=== PATIENT | male | born 1970 | race Caucasian/White ===

== ENCOUNTER 2021-09-21 19:36 | Outpatient (REF) | payer OTHER, SELFPAY ==
[2021-09-21 20:26] LABS: Anion Gap 11.7 mmol/L (3-11); BUN 25 mg/dL (7-18); CO2 24.3 mmol/L (21.0-32.0); Calculated LDL 101 mg/dL (<100); Chloride 106 mmol/L (98-107); Cholesterol 177 mg/dL (<200); Glucose 89 mg/dL (74-106); HDL Cholesterol 54 mg/dL (40-60); Potassium 4.2 mmol/L (3.5-5.1); Sodium 142 mmol/L (136-145); TSH 1.72 uIU/mL (0.36-3.74); Triglyceride 112 mg/dL (<150)
[2021-09-22 17:31] LABS: PSA, Screening 0.8 ng/mL (0.0-3.5)
== END 2021-09-21 19:37 | disposition home or self-care (01) ==
LOC: NCHCN 19:36
PROVIDERS: PCP Physician Assistant; Visit Provider Internal Medicine
DX: N40.0 Benign prostatic hyperplasia without lower urinary tract symptoms (principal); Z12.5 Encounter for screening for malignant neoplasm of prostate; Z00.00 Encounter for general adult medical examination without abnormal findings; Z13.29 Encounter for screening for other suspected endocrine disorder; Z13.220 Encounter for screening for lipoid disorders; Z13.228 Encounter for screening for other metabolic disorders
CPT/HCPCS: 80048; 80061; 84153; 84443

== ENCOUNTER 2023-03-23 14:16 | Outpatient (REF) | payer OTHER, SELFPAY ==
[2023-03-23 21:49] LABS: Abs Immature Grans 0.01 10^3/uL (0.0-0.06); Absolute Basophil Count 0.05 10^3/uL (0.0-0.2); Absolute Eosinophil Count 0.23 10^3/uL (0.0-0.7); Absolute Lymphocyte Count 1.16 10^3/uL (1.2-3.4); Absolute Monocyte Count 0.46 10^3/uL (0.1-0.8); Eosinophils % 4.6; HCT 43.8 % (40.0-50.0); HGB 14.5 g/dL (13.5-17.5); Immature Grans % 0.2; Lymphocytes % 23.2; MCH 30.8 pg (27.0-33.0); MCHC 33.1 % (32.0-36.0); MCV 93 fL (80-95); MPV 10.6 fL (8.0-11.0); Monocytes % 9.2; Neutrophils % 61.8; Platelet Count 130 10^3/uL (130-400); RBC 4.71 10^6/uL (4.36-5.78); RDW 12.3 % (11.8-14.1); RDW-SD 42.5 fL; WBC 5.01 10^3/uL (4.4-10.8)
[2023-03-23 21:59] LABS: ESR 3 mm/hr (0-20)
[2023-03-23 22:09] LABS: ALT 31 U/L (16-63); AST 25 U/L (15-37); Albumin 3.9 g/dL (3.4-5.0); Alkaline Phosphatase 54 U/L (46-116); Anion Gap 7.5 mmol/L (3-11); BUN 19 mg/dL (7-18); Bilirubin, Total 0.6 mg/dL (0.2-1.0); CO2 27.5 mmol/L (21.0-32.0); CREATININE 0.9 mg/dL (0.70-1.30); Chloride 108 mmol/L (98-107); Creatine Kinase 180 U/L (39-308); Estimated GFR 102.12 (mL/min/1.73m2); Glucose 126 mg/dL (74-106); Potassium 4.4 mmol/L (3.5-5.1); Sodium 143 mmol/L (136-145); TSH 1.21 uIU/mL (0.36-3.74); Total Protein 6.5 g/dL (6.4-8.2)
[2023-03-24 18:27] LABS: Rheumatoid Factor <8.6 IU/mL (<12.0)
[2023-03-28 16:03] LABS: ANA Interpretation Negative (Negative)
[2023-03-29 10:15] LABS: Lyme Ab w Rflx to Lyme Confirm Negative (Negative)
== END 2023-03-23 14:17 | disposition home or self-care (01) ==
LOC: NCHCN 14:16
PROVIDERS: PCP Physician Assistant; Visit Provider Internal Medicine
DX: R53.83 Other fatigue (principal)
CPT/HCPCS: 80053; 82550; 85652; 84443; 85025; 86038; 86431; 86618

== ENCOUNTER 2024-06-04 08:10 | Day surgery (SDC) | payer OTHER, SELFPAY ==
--- NOTE | 2024-06-03 15:50 | W.PM.DSUDISC ---
Date of service: 06/04/24 Time of Service: 09:23 Discharge Plan Disposition Patient Disposition: Home Condition: Good Discharge Details Reason For Visit: screening colonoscopy Attending Provider: Valdez Stroud Primary Care Provider: Caleb Cerna Home Meds and New Rx's Prescriptions: Continued tamsulosin 0.4 mg capsule 0.4 mg PO QHS albuterol sulfate 90 mcg/actuation HFA aerosol inhaler 2 puff inhalation Q6H PRN Discontinued polyethylene glycol 3350 17 gram/dose powder 238 g PO ONCE Qty: 238 0RF Rx Instructions: take per colonoscopy instructions bisacodyl [Dulcolax (bisacodyl)] 5 mg tablet,delayed release (DR/EC) 5 mg PO ONCE Qty: 4 0RF Rx Instructions: take per colonoscopy instructions No Action epinephrine 0.3 mg/0.3 mL auto-injector Discharge Instructions Instructions: Diverticulosis Additional Instructions: Jalen, it was great seeing you today, and I hope you are comfortable during the procedure. Everything went very smoothly. Your prep was great and I could see everything fine. There are no tumors or polpys. Incidentally, you do have a bit of diverticulosis. Diverticula are little weak spots in the muscular part of the colon wall. This causes the inside lining to push outward a bit. He is can get irritated during episodes that we refer to his diverticulitis. Hopefully, years never bother you. Have attached a little bit of information here about management of diverticular disease. Generally, I recommend the patient stay well-hydrated, incorporate lots of fiber into their diet, and avoid symptoms of constipation. Based on your family history, I do recommend another colonoscopy in 5 years. If you need anything, or have any questions in the meantime, please do not hesitate to ask 1. If tolerated, consume a soft, low fiber diet for 1-2 days. 2. Do not drive, drink alcohol, operate machinery, make critical decisions, or do activities that require coordination or balance for 24 hours. 3. Because air was put into your colon during the procedure, expelling air from your rectum (passing gas or farting) is normal. 4. You may not have a bowel movement for 1-3 days because of the colonoscopy prep. This is normal. 5. Go directly to the emergency room if you notice any of the following: Develop chills (warm to touch), or if you have a thermometer and your temperature is above 101 Difficulty breathing or difficultly swallowing Persistent vomiting Severe abdominal pain, other than gas cramps Severe chest pain Black, tarry stools Any bleeding ? exceeding one tablespoon 6. Call your physician if the site where your intravenous was started becomes red, swollen, painful, and warm to touch. 7. Your physician has reviewed your pre-procedure medications. Please continue to take those medications as previously ordered. You will be given specific information/education regarding any changes to your medications before leaving. Activity:: Activity as Tolerated Diet:: As Tolerated Discharge Orders Discharge Orders: Discharge Order (Routine); Ordered 06/03/24 Ordered By: Sidney Roland DS: Diagnosis Discharge Diagnosis (1) Encounter for screening colonoscopy: Status: Acute Asessment and Plan: Diverticulosis; otherwise negative screening colonoscopy. Based on family history, 5-year interval for the next colonoscopy
--- NOTE | 2024-06-03 15:53 | W.COLOREPORT ---
Date of service: 06/04/24 Time of Service: : Colonoscopy Report Date of procedure: 06/04/24 Pre-op diagnosis general: screening colonoscopy Post-op diagnosis procedure note: other (Diverticulosis) Procedure: colonoscopy Surgeon: Sidney Roland Anesthesia Type: General:No Airway Estimated blood loss (mL): 0 Pathology: none sent Complications: None Disposition: same day Indications: Jalen is a 53 year old man with a family history of colon cancer who needs his next screening colonoscopy Prep: Miralax/Dulcolax Procedure Start Time: :02 Procedure End Time: :17 Retraction Time: 10 Findings: Sigmoid diverticulosis Procedure Description: After the induction of anesthesia, and with the patient in left lateral decubitus position, I began by performing an external anorectal exam.? Perineum and skin were normal, as was the anal verge.? There was no evidence of external hemorrhoids.? Next, I performed a digital rectal exam.? I did not appreciate any abnormal findings.? Next, I advanced a colonoscope into the rectal vault.? I performed retroflexion.? This appeared normal.? Using insufflation, I then advanced the colonoscope beyond the rectal folds and into the sigmoid colon before advancing towards the cecum.? There is some sigmoid diverticulosis.? The scope was noted to be in the cecum by identification of the ileocecal valve and appendiceal orifice.? I then began withdrawing the colonoscope using repeated irrigation as necessary for full evaluation of the colonic mucosa. ?Once the scope was withdrawn to the level of the rectum, great care was taken to examine portions of the rectal folds. I saw no signs of tumors or polyps during the colonoscopy finally, the scope was withdrawn and the patient was brought to the same-day surgery recovery unit as the anesthetic wore off. ?The findings and instructions were shared with the patient prior to discharge. [place] Bowel Prep [place] Bowel Prep Right Colon: 2 Left Colon: 3 Transverse Colon: 3 Total Score: 8
[2024-06-04 08:15] VITALS: BP 135/90; PULSE 56; RESP 16; TEMP 36.3; O2SAT 98
--- NOTE | 2024-06-04 08:40 | W.ANESPRE ---
General Info Date of Service Date Performed: 06/04/24 Height: 5 ft 10 in Weight: 86.1 kg Body Mass Index (BMI): 27.2 Surgical Procedure: Operation Date: 06/04/24 09:50 Proposed Procedure Side Surgeon p Bharat Roland MD Meds Allergies and Home Medications Allergies Allergy/AdvReac Type Severity Reaction Status Date / Time shellfish derived Allergy Anaphylaxis Verified 06/04/24 08:31 Home Medication ?Medication ?Instructions ?Recorded albuterol sulfate 90 mcg/actuation 2 puff inhalation Q6H PRN 04/02/24 aerosol inhaler tamsulosin 0.4 mg capsule 0.4 mg PO QHS 04/02/24 epinephrine 0.3 mg/0.3 mL 06/04/24 injection, auto-injector Current Visit Medications: Current Medications Generic Name Dose Route Start Last Admin Trade Name Freq PRN Reason Stop Dose Admin Ringer's Solution 500 mls @ 80 mls/hr 06/04/24 06:00 IV 06/04/24 23:59 [facility] IV Miscellaneous Supplies 1 each 06/04/24 06:00 Iv Access IV 06/04/24 23:59 DIRECTED ARLENE Ondansetron HCl 4 mg 06/03/24 15:54 Ondansetron 4 Mg/2 Ml Vial IVP 07/03/24 15:53 Q4H PRN PRN Nausea / Vomiting Sodium Chloride 0 ml 06/04/24 06:00 Normal Saline Flush 10 Ml Syr IV 06/04/24 23:59 PRN PRN Sodium Chloride 0 ml 06/04/24 06:00 Normal Saline 10 Ml Vial IJ 06/04/24 23:59 DIRECTED PRN Sterile Water 0 ml 06/04/24 06:00 Water,Injection,Sterile 10 Ml Vial IJ 06/04/24 23:59 DIRECTED PRN PFSH Active Problems Active Problems: Problem Status Onset Code Encounter for screening colonoscopy Acute Z12.11 Medical History Medical History Self-injurious behavior Fatigue Muscle pain BPH (benign prostatic hyperplasia) IBS (irritable bowel syndrome) Mild intermittent asthma Allergic rhinitis Contact dermatitis Insomnia Generalized anxiety disorder Asthma Medical History Comments:: 2x week [place] Surgical History Surgical History Hx of arthroscopic knee surgery Left; infected bursa Colonoscopy - IV Sedation (11/16/16) Tobacco Smoking/Tobacco Use Status: Never Alcohol Alcohol Intake: current Alcohol intake frequency: a few times a week Substance Use Substance use: Occasionally Substance use type: marijuana Vital Signs and Lab Results Vital Signs Most Recent Vital Signs in EMR: Most Recent Vital Signs Temp Pulse Resp BP Pulse Ox 36.3 C L 56 L 16 135/90 98 06/04/24 08:15 06/04/24 08:15 06/04/24 08:15 06/04/24 08:15 06/04/24 08:15 Lab Results Blood Type / Crossmatch: No Data to Display Complete Blood Count: No Data to Display Complete Metabolic Panel: No Data to Display Liver Function Panel: No Data to Display Coagulation Panel: No Data to Display Cardiac Panel: No Data to Display Arterial Blood Gas: No Data to Display Venous Blood Gas: No Data to Display Pancreas Panel: No Data to Display Thyroid Panel: No Data to Display Infectious Disease: No Data to Display Blood Cultures: No Data to Display Toxicology Panel: No Data to Display Anesthesia Assessment and Plan Anesthesia History Personal History: No History of Anesthesia Complications Family History: No Family History of Anesthesia Complications Exercise Tolerance Exercise Tolerance: Metabolic Equivalents>4 Cardiac & Pulmonary Exam Cardiac Exam: Normal S1/S2 Heart Sounds Pulmonary Exam: Clear Bilateral Breath Sounds Implantable Cardiac Device Does patient have a Pacemaker or an ICD?: No Airway Exam Known Difficult Airway: No Mallampati Class: 3 Mouth Opening: Normal (> 3cm) Thyromental Distance: Greater than 3 cm Neck Range of Motion: Full ROM Neck Circumference: Normal Teeth Condition: Normal Dentition ASA Classification ASA Score: ASA 2 Emergency Case?: No NPO Status NPO Status: NPO Clears >2 hours, Solids >8 hours Anesthesia Plan Resuscitation Status: Full Code Anesthesia Technique: General Anesthesia Airway Planned: Natural Airway Monitors Used: Standard Monitors
[2024-06-04] MEDS: Lactated Ringers 500 ML 80 ML IV (08:52)
[2024-06-04 09:00] VITALS: BMI 27.2
[2024-06-04 09:23] VITALS: BP 102/63; PULSE 52; RESP 16; TEMP 36.3; O2SAT 98
[2024-06-04 09:53] VITALS: BP 118/89; PULSE 55; RESP 16; TEMP 36.2; O2SAT 99
--- NOTE | 2024-06-04 12:49 | W.ANESPOSTOP ---
Postoperative Evaluation Date, Time and Location Date Performed: 06/04/24 Time Performed: : Patient Location: Day Surgery Unit Vital Signs Most Recent Imported Vital Signs: Most Recent Vital Signs Temp Pulse Resp BP Pulse Ox 36.2 C L 55 L 16 118/89 99 06/04/24 09:53 06/04/24 09:53 06/04/24 09:53 06/04/24 09:53 06/04/24 09:53 Pain Score Most Recent Pain Score: Most Recent Pain Score Pain Level 0 06/04/24 09:53 Assessment Mental Status: Awake (Alert & Oriented to Patient Baseline) Airway and Respiratory Function: Patent airway with normal (patient baseline) respiratory exam Cardiovascular Function: Hemodynamically Stable Hydration Status: Adequately Hydrated Nausea & Vomiting: No Nausea or Vomiting Pain: Pt. Denies Any Pain Peripheral Nerve Block: Patient did not receive a nerve block
== END 2024-06-04 10:17 | disposition home or self-care (01) ==
PROVIDERS: PCP Internal Medicine; Visit Provider Surgery
PROC: 0DJD8ZZ Inspection of Lower Intestinal Tract, Via Natural or Artificial Opening Endoscopic (ICD-10-PCS; CPT 45378; principal; 2024-06-04 09:45)
DX: Z12.11 Encounter for screening for malignant neoplasm of colon (principal); Z80.0 Family history of malignant neoplasm of digestive organs
CPT/HCPCS: 45378; J2704

== ENCOUNTER 2024-12-26 17:42 | Outpatient (REF) | payer OTHER, SELFPAY ==
[2024-12-26 20:34] LABS: ALT 29 U/L (16-63); AST 28 U/L (15-37); Albumin 4.1 g/dL (3.4-5.0); Alkaline Phosphatase 59 U/L (46-116); Anion Gap 5.6 mmol/L (3-11); BUN 23 mg/dL (7-18); Bilirubin, Total 0.3 mg/dL (0.2-1.0); CO2 28.4 mmol/L (21.0-32.0); Calcium 9.1 mg/dL (8.5-10.1); Calculated LDL 124 mg/dL (<100); Chloride 105 mmol/L (98-107); Cholesterol 192 mg/dL (<200); Estimated GFR 88.88 (mL/min/1.73m2); Glucose 95 mg/dL (74-106); HDL Cholesterol 42 mg/dL (>or=40); Potassium 4.6 mmol/L (3.5-5.1); Sodium 139 mmol/L (136-145); Total Protein 7.1 g/dL (6.4-8.2); Triglyceride 132 mg/dL (<150)
[2024-12-26 20:51] LABS: Hemoglobin A1C 5.6 % (<5.7)
[2024-12-27 18:18] LABS: PSA, Screening 0.8 ng/mL (<=3.5)
== END 2024-12-26 17:43 | disposition home or self-care (01) ==
LOC: NCHCN 17:42
PROVIDERS: PCP Internal Medicine; Visit Provider Internal Medicine
DX: R03.0 Elevated blood-pressure reading, without diagnosis of hypertension (principal); E11.9 Type 2 diabetes mellitus without complications; E78.5 Hyperlipidemia, unspecified; Z12.5 Encounter for screening for malignant neoplasm of prostate
CPT/HCPCS: 80053; 80061; 84153; 83036